=== PATIENT | female | born 1965 | race Caucasian/White ===

== ENCOUNTER 2016-12-17 14:10 | Emergency (ER) | payer MEDICARE, MEDICAID ==
[~2016-12-17] VITALS: Ht 172.7 cm; Wt 75.0 kg
[2016-12-17] MEDS ORDERED: METOCLOPRAMIDE 10 MG/2 ML (REGLAN) VIAL IV ONE (14:35)
[2016-12-17] MEDS ORDERED: SODIUM CHLORIDE FLUSH 3 ML SYR IV ONE (14:45)
[2016-12-17] MEDS ORDERED: SODIUM CHLORIDE FLUSH 10 ML SYR IV PRN (14:45)
[2016-12-17 14:53] LABS: BASOPHILS % (AUTO) 1 % (0-2); EOSINOPHILS # (AUTO) 0.1 10^3uL; EOSINOPHILS % (AUTO) 2 % (0-4); LYMPHOCYTES # (AUTO) 1.3 X10^3; MEAN CORPUSCULAR HEMOGLOBIN 30.6 PG (26.0-34.0); MEAN CORPUSCULAR HGB CONC 33.8 g/dL (31.0-37.0); MEAN CORPUSCULAR VOLUME 90 FL (80-100); MEAN PLATELET VOLUME 11.7 FL (6.0-9.5); MONOCYTES # (AUTO) 0.5 X10^3; MONOCYTES % (AUTO) 13 % (3-11); NEUTROPHILS # (AUTO) 1.6 X10^3; NEUTROPHILS % (AUTO) 48 % (51-67); PLATELET COUNT 106 10^3uL (150-450); WHITE BLOOD COUNT 3.44 10^3uL (4.0-11.0)
[2016-12-17 15:02] LABS: ALBUMIN 4.2 g/dL (3.4-5.0); ANION GAP 16.9 MEQ/L (3-15); CALCULATED IONIZED CALCIUM 3.8 mg/dL (3.8-4.6); TOTAL PROTEIN 7.5 g/dL (6.4-8.5)
[2016-12-17] MEDS ORDERED: NS IV 500 ML 500 ML IV SCH (15:20)
[2016-12-17] MEDS ORDERED: fentaNYL 100 MCG/2 ML VIAL IV ONE (16:10)
[2016-12-17 16:32] VITALS: BP 135/88
== END 2016-12-17 16:33 | disposition home or self-care (01) ==
LOC: EDUNIT# 14:10 → ED 14:12
DX: R10.84 Generalized abdominal pain (principal); K59.00 Constipation, unspecified
CPT/HCPCS: 36415; 74177; 80053; 82150; 83690; 85025; 96361; 96374; 96375; 99283; J2765; J3010; J7040; Q9967

== ENCOUNTER → 2017-01-06 | Outpatient (CLI) | payer MEDICARE, MEDICAID | LOC: RAD 08:31 | PROVIDERS: ATTEND Internal Medicine Gastroenterology | DX: K31.84 Gastroparesis (principal); R11.2 Nausea with vomiting, unspecified; R10.9 Unspecified abdominal pain | CPT/HCPCS: 78264; A9541 ==

== ENCOUNTER 2017-02-18 13:23 | Outpatient (RCR) | payer MEDICARE, MEDICAID ==
[2017-02-18 13:01] LABS: MEAN CORPUSCULAR HEMOGLOBIN 30.5 PG (26.0-34.0); MEAN CORPUSCULAR HGB CONC 33.2 g/dL (31.0-37.0); MEAN PLATELET VOLUME 11.3 FL (6.0-9.5); WHITE BLOOD COUNT 5.6 10^3uL (4.0-11.0)
[~2017-02-18 13:23] MED LIST: ATOR10TA PO; CARB1TAB7 PO; CARI250T PO; CARI350T PO; CHOL100055 PO; CLON0.1T PO; DESV50TA10 PO; DIAZ5TAB PO; ESOM20CA PO; FLC1T PO; Fioricet; GABA800T PO; HYDR1TAB88 PO; HYDR8TAB24 PO; HYDROXYSUT PO; KETO1SPR NS; LACT10SO6 PO; LEVE250T18 PO; METH2.5T PO; MORP80CA PO; MTC10T PO; NIAC100T3 PO; PRESTIG; PROM25TA14 PO; PROP60CA8 PO; SERT100T PO; SPIR50TA PO; SUMA6KIT SQ; TORS20TA2 PO; [UNRECOGNIZED DRUG - OTHER] PO; lortab; potassium
[2017-02-18 13:24] LABS: ALBUMIN 4.5 g/dL (3.4-5.0); ANION GAP 17.1 MEQ/L (3-15); CALCULATED IONIZED CALCIUM 3.9 mg/dL (3.8-4.6); TOTAL PROTEIN 7.4 g/dL (6.4-8.5)
[2017-02-23 17:45] LABS: NUMBER HOURS COLLECTED 24; UR VOL 1575
[2017-02-27 07:53] LABS: URINE VOLUME REF 1575 mL (())
== END 2017-04-01 19:15 | disposition home or self-care (01) ==
LOC: LAB 13:23 → EDSTATUS 02-23 13:39 → LAB 04-01 19:15
PROVIDERS: ATTEND Family Medicine
DX: I10 Essential (primary) hypertension (principal); R10.11 Right upper quadrant pain
CPT/HCPCS: 36415; 80053; 81050; 82384; 83497; 83835; 84443; 85027

== ENCOUNTER → 2017-03-04 | Outpatient (CLI) | payer MEDICARE, MEDICAID ==
--- NOTE | 2017-03-04 19:03 | Diagnostic Imaging Report ---
INDICATION: Abdominal pain x3 months. EXAMINATION: KUB obtained at 02:11 p.m. FINDINGS: There are surgical clips in the right upper quadrant. There is moderate gaseous distention of colonic loops without significant small bowel distention. There are phleboliths in the pelvis. IMPRESSION: Moderate diffuse gaseous distention of colonic loops without significant small bowel distention. There are surgical clips in the right upper quadrant. There are phleboliths in the pelvis. Dictated by: Dictated on workstation # [id number]
== END ==
LOC: RAD 13:53
PROVIDERS: ATTEND Physician Assistant Medical
DX: R10.9 Unspecified abdominal pain (principal); K59.00 Constipation, unspecified
CPT/HCPCS: 74000

== ENCOUNTER → 2017-03-24 | Outpatient (CLI) | payer MEDICARE, MEDICAID | LOC: LAB 13:09 | PROVIDERS: ATTEND Family Medicine | DX: I10 Essential (primary) hypertension (principal); R10.10 Upper abdominal pain, unspecified | CPT/HCPCS: 36415; 83835 ==